=== PATIENT | male | born 1930 | race Caucasian/White ===

== ENCOUNTER 2017-10-12 08:07 | Inpatient (IN) ==
[2017-10-12] MEDS ORDERED: predniSONE 20 MG TABLET PO ONE (08:12)
[2017-10-12] MEDS ORDERED: Ipratropium/Albuterol Neb 3 ML IH ONE (08:12)
--- NOTE | 2017-10-12 08:18 | Emergency Department Note ---
Disposition Clinical Impression: Shortness of breath Congestive heart failure Qualifiers: Congestive heart failure type: unspecified Congestive heart failure chronicity : unspecified Qualified Code(s): I50.9 - Heart failure, unspecified Anemia Qualifiers: Anemia type: unspecified type Qualified Code(s): D64.9 - Anemia, unspecified Disposition: Admitted As Inpatient Condition: Good Referrals: Lety Hernandez WET POUR SUPERVISOR [Primary Care Provider] - Time of Disposition: 09:36 SOB HPI - General Stated Complaint: SOB Time Seen by Provider: 10/12/17 08:09 Source: patient, family (Most information obtained from patient's brother) Mode of arrival: wheelchair Limitations: no limitations Nursing Notes Reviewed: Yes Vital Signs Reviewed: Yes - History of Present Illness Symptoms 10 days. Worse since last night. Patient with wheezing and dyspnea. No chest pain, fevers or known ill contacts. No history of non-oxygen dependent COPD Pt Subjective Complaint: shortness of breath Onset (ago): day(s) Severity: moderate Consistency/Duration: intermittent Improves with: rest Worsens with: other (Course in the morning and with exertion. Better after drinking coffee and after exposure to cold air) Known history of: COPD Associated symptoms: Reports: cough, wheezing, nausea/vomiting - Related Data Home oxygen amount: none Previous Rx's Medication Instructions Recorded Meclizine HCl [Verticalm] 25 mg PO TID #20 tablet 04/15/17 Allergies Allergy/AdvReac Type Severity Reaction Status Date / Time No Known Allergies Allergy Unverified 10/31/15 10:38 All systems ED: reviewed and negative except as stated. Constitutional: Reports: weakness Eyes: Reports: as per HPI ENT ED: Reports: as per HPI Cardiovascular: Reports: edema Respiratory: Reports: cough, dyspnea, wheezes Gastrointestinal: Reports: nausea, vomiting ("sour stomach") Genitourinary: Reports: as per HPI Musculoskeletal: Reports: as per HPI Integumentary: Reports: as per HPI Neurological: Reports: weakness Psychiatric: Reports: as per HPI Endocrine: Reports: as per HPI Hematological/Lymphatic: Reports: as per HPI Allergic/Immunologic: Reports: as per HPI Past Medical History - Past Medical History Source: patient Medical history: Reports: atrial fibrillation Psychiatric history: Reports: no psych history - Social History Smoking Status: Former smoker Smokeless Tobacco Status: No Alcohol use: Reports: occasionally Drug use: Reports: none Physical Exam Hard of hearing. audible wheezing - General Limitations: no limitations General appearance: alert - Head Head exam: atraumatic - Eye Eye exam: Present: other (conjunctival pallor) - ENT ENT exam: normal exam - Neck Neck exam: Present: normal inspection, full ROM - Chest Chest inspection: Present: normal inspection, symmetric chest wall rise - Respiratory Respiratory exam: Present: other (audible wheezing. Mild expiratory wheezing with auscultation. Mild tachypnea.) - Cardiovascular Cardiovascular exam: Present: tachycardia, irregular rhythm - Abdominal Exam Abdominal exam: Present: soft, Non-Tender - Rectal Exam Rectal exam: Present: normal inspection, normal rectal tone. Absent: black stool, bloody stool, fecal impaction, mass, tenderness - Extremities Exam Extremities exam: Present: pedal edema (Trace at sock line) - Neurological Exam Neurological exam: Present: alert, oriented X3, CN II-XII intact - Psychiatric Psychiatric exam: Present: normal affect, normal mood - Skin Skin exam: Present: warm, dry, intact, pallor Course Course Narrative: Patient presents with respiratory symptoms. I favor COPD but will evaluate the patient for CHF, ACS, pneumonia. Therapy administered. Oral steroids ordered. Patient to be observed and reassessed - Reevaluation(s) Reevaluation #1: Patient is Hemoccult negative. Testing suggestive of congestive heart failure. Diuretics administered. I will request admission Vital Signs Temperature 97.5 F L 10/12/17 08:11 Pulse Rate 117 10/12/17 08:11 Respiratory Rate 24 10/12/17 08:11 Blood Pressure 121/85 10/12/17 08:11 O2 Sat by Pulse Oximetry 96 10/12/17 08:11 Temperature 97.5 F L 10/12/17 08:11 Pulse Rate 114 10/12/17 09:20 Respiratory Rate 22 10/12/17 09:20 Blood Pressure 116/98 10/12/17 09:20 O2 Sat by Pulse Oximetry 95 10/12/17 09:20 Oxygen Delivery Oxygen Delivery Nasal Cannula Shortness of Breath/Dyspnea - Medical Records Medical records reviewed: Yes I reviewed the patient's medical records. Home medication lists reviewed. transcribed cardiac echo report dated 10/08 results reviewed by me - Lab Data Lab results reviewed: Yes I reviewed the patient's lab results. Result diagrams: 10/12/17 08:27 10/12/17 08:27 Lab Results 10/12/17 10/12/17 10/12/17 Range/Units 08:27 08:27 08:27 WBC 3.8 L (4.3-11.1) K/mcL RBC 4.28 (4.19-5.50) M/mcL Hgb 8.7 L (12.9-16.9) g/dL Hct 30.0 L (37.5-50.1) % MCV 70.1 L (83.0-100.0) fL MCH 20.3 L (28.0-33.3) pg MCHC 29.0 L (31.6-35.5) g/dL RDW 18.9 H (11.5-14.5) % Plt Count 211 (140-400) K/mcL MPV 11.1 (9.4-12.4) fL Immature Gran % 0.3 (0-4) % Seg Neutrophils % 81.4 % Lymphocytes % 11.5 % Monocytes % 5.0 % Eosinophils % 0.8 % Basophils % 1.0 % Neutrophils # 3.1 (1.6-8.9) K/mcL Lymphocytes # 0.4 L (0.6-4.6) K/mcL Monocytes # 0.2 (0.0-1.3) K/mcL Eosinophils # 0.0 (0.0-0.6) K/mcL Basophils # 0.0 (0.0-0.2) K/mcL Platelet Estimate Normal (Normal) Hypochromasia Present A (Not Present) PT 28.2 H (9.4-12.1) Seconds INR 2.6 Sodium 140 (136-145) mEq/L Potassium 3.8 (3.5-5.1) mEq/L Chloride 106 (98-107) mEq/L Carbon Dioxide 25 (23-29) mEq/L BUN 17 (8-23) mg/dL Creatinine 1.00 (0.70-1.30) mg/dL Est GFR ( Amer) > 60 (> 60) Est GFR (Non-Af Amer) > 60 (> 60) BUN/Creatinine Ratio 17 (6-26) Glucose 134 H (70-105) mg/dL Calculated Osmolality 294 (280-300) Calcium 9.2 (8.6-10.3) mg/dL Total Bilirubin 1.6 H (0.3-1.0) mg/dL AST 12 L (13-39) Units/L ALT 7 (7-52) Units/L Alkaline Phosphatase 108 H (34-104) Units/L Troponin I (< 0.04) ng/mL B-Natriuretic Peptide (Less than 100) pg/mL Serum Total Protein 6.5 (6.4-8.9) g/dL Albumin 3.9 (3.5-5.7) g/dL Globulin 2.6 (2.4-3.5) g/dL Albumin/Globulin Ratio 1.5 (1.1-2.2) Stool Occult Blood (Negative) 10/12/17 10/12/17 10/12/17 Range/Units 08:27 08:27 08:50 WBC (4.3-11.1) K/mcL RBC (4.19-5.50) M/mcL Hgb (12.9-16.9) g/dL Hct (37.5-50.1) % MCV (83.0-100.0) fL MCH (28.0-33.3) pg MCHC (31.6-35.5) g/dL RDW (11.5-14.5) % Plt Count (140-400) K/mcL MPV (9.4-12.4) fL Immature Gran % (0-4) % Seg Neutrophils % % Lymphocytes % % Monocytes % % Eosinophils % % Basophils % % Neutrophils # (1.6-8.9) K/mcL Lymphocytes # (0.6-4.6) K/mcL Monocytes # (0.0-1.3) K/mcL Eosinophils # (0.0-0.6) K/mcL Basophils # (0.0-0.2) K/mcL Platelet Estimate (Normal) Hypochromasia (Not Present) PT (9.4-12.1) Seconds INR Sodium (136-145) mEq/L Potassium (3.5-5.1) mEq/L Chloride (98-107) mEq/L Carbon Dioxide (23-29) mEq/L BUN (8-23) mg/dL Creatinine (0.70-1.30) mg/dL Est GFR ( Amer) (> 60) Est GFR (Non-Af Amer) (> 60) BUN/Creatinine Ratio (6-26) Glucose (70-105) mg/dL Calculated Osmolality (280-300) Calcium (8.6-10.3) mg/dL Total Bilirubin (0.3-1.0) mg/dL AST (13-39) Units/L ALT (7-52) Units/L Alkaline Phosphatase (34-104) Units/L Troponin I 0.05 H* (< 0.04) ng/mL B-Natriuretic Peptide 752 H (Less than 100) pg/mL Serum Total Protein (6.4-8.9) g/dL Albumin (3.5-5.7) g/dL Globulin (2.4-3.5) g/dL Albumin/Globulin Ratio (1.1-2.2) Stool Occult Blood Negative (Negative) - Radiology Data Radiology results reviewed: Yes I reviewed the patient's radiology results. - EKG Data EKG attestation: Yes I reviewed and interpreted this EKG. EKG results narrative: Irregularly irregular rhythm rate 117 QRS 93 QT/QTC 301/371. Study compared to previous dated 04/15/17
[2017-10-12 08:34] LABS: Hemoglobin 8.7 g/dL (12.9-16.9)
[2017-10-12 08:36] LABS: Eosinophils % 0.8 %; Immature Granulocytes % 0.3 % (0-4); Lymphocytes # 0.4 K/mcL (0.6-4.6); Lymphocytes % 11.5 %; Mean Corpuscular Hemoglobin 20.3 pg (28.0-33.3); Mean Corpuscular Volume 70.1 fL (83.0-100.0); Mean Platelet Volume 11.1 fL (9.4-12.4); Monocytes # 0.2 K/mcL (0.0-1.3); Neutrophils # 3.1 K/mcL (1.6-8.9); Platelet Count 211 K/mcL (140-400); Red Blood Count 4.28 M/mcL (4.19-5.50); Red Cell Distribution Width 18.9 % (11.5-14.5); Segmented Neutrophils % 81.4 %
[2017-10-12 08:40] LABS: INR 2.6; Prothrombin Time 28.2 Seconds (9.4-12.1)
[2017-10-12 08:48] LABS: Alanine Aminotransferase 7 Units/L (7-52); Albumin 3.9 g/dL (3.5-5.7); Albumin/Globulin Ratio 1.5 (1.1-2.2); Alkaline Phosphatase 108 Units/L (34-104); Aspartate Amino Transferase 12 Units/L (13-39); BUN/Creatinine Ratio 17 (6-26); Bilirubin,Total 1.6 mg/dL (0.3-1.0); Blood Urea Nitrogen 17 mg/dL (8-23); Calcium 9.2 mg/dL (8.6-10.3); Carbon Dioxide 25 mEq/L (23-29); Chloride 106 mEq/L (98-107); Globulin 2.6 g/dL (2.4-3.5); Glucose 134 mg/dL (70-105); Osmolality,Calculated 294 (280-300); Potassium 3.8 mEq/L (3.5-5.1); Sodium 140 mEq/L (136-145); Total Protein 6.5 g/dL (6.4-8.9); eGFR For African Americans > 60 (> 60); eGFR For Non-African Americans > 60 (> 60)
[2017-10-12 08:56] LABS: Hypochromasia Present (Not Present); Platelet Estimate Normal (Normal)
[2017-10-12] MEDS ORDERED: Furosemide 40 MG/4 ML VIAL IVP ONE (09:06)
[2017-10-12] MEDS ORDERED: Acetaminophen 325 MG TABLET PO PRN (11:04)
[2017-10-12] MEDS ORDERED: Naloxone 0.4 MG/ML INJ IVP PRN (11:04)
[2017-10-12] MEDS ORDERED: Ondansetron 4 MG/2 ML VIAL IVP PRN (11:04)
[2017-10-12] MEDS ORDERED: *HR* Digoxin 0.5 MG/2 ML AMPUL IVP ONE (11:17)
[2017-10-12] MEDS ORDERED: *HR* Digoxin 0.5 MG/2 ML AMPUL ONE (11:18)
--- NOTE | 2017-10-12 11:32 | Internal Med History&Physical ---
Date of Encounter: 10/12/17 Time of Encounter: 11:31 Assessment and Plan (1) Anemia Current visit: Yes Status: Acute 1 presents with a hemoglobin of 8.7 down from previous 2 years ago 14. Suspect this is due to blood loss secondary to Coumadin and aspirin use. Stool cultures negative we will initiate on a Protonix drip 2 we will trend H&H transfuse as less than 8 3 continuous cardiac monitoring 4 hold Coumadin and aspirin for now 5 consult GI-consult has been placed to be followed up by day team 6 we will make patient clear liquids for now and nothing by mouth after midnight Qualifiers: Anemia type: unspecified type Qualified Code(s): D64.9 - Anemia, unspecified (2) Congestive heart failure Current visit: Yes Status: Acute Previous echo 10/2016: Moderately dilated left ventricle. Moderate-severe LV systolic dysfunction, LVEF 30-35%. Right ventricle was not well visualized. Grossly appears normal in size and function. Moderate-severely dilated left atrium. Moderately dilated right atrium. Valvular function was not assessed on this limited study. We will give Lasix 30 mg IV twice a day for today and switch to daily in the a.m. Continuous cardiac monitoring Continue with beta lexi Monitor intake and output daily weights 1500 mL fluid restriction Low-sodium diet Qualifiers: Congestive heart failure type: systolic Congestive heart failure chronicity : acute on chronic Qualified Code(s): I50.23 - Acute on chronic systolic ( congestive) heart failure (3) Atrial fibrillation Current visit: Yes Status: Acute Patient presents with atrial fibrillation with RVR-we will give 0.25 of digoxin continue with cardiazem and metoprolol. Patient is on Coumadin we will hold for now due to anemia. Resume once back to baseline Continuous cardiac monitoring We will check TSH Qualifiers: Atrial fibrillation type: chronic Qualified Code(s): I48.2 - Chronic atrial fibrillation (4) CAD (coronary artery disease) Current visit: Yes Status: Acute 1 continue with beta lexi statin we will hold aspirin and Coumadin for now due to anemia Nitroglycerin as needed Continuous cardiac monitoring Qualifiers: Coronary Disease-Associated Artery/Lesion type: [place] artery [place] vs. transplanted heart: [place] heart Associated angina: without angina Qualified Code(s): I25.10 - Atherosclerotic heart disease of [place] coronary artery without angina pectoris (5) Hypothyroid Current visit: No Status: Chronic Continue with Synthroid Check TSH Qualifiers: Hypothyroidism type: unspecified Qualified Code(s): E03.9 - Hypothyroidism , unspecified (6) DVT prophylaxis Current visit: Yes Status: Acute SCDs due to anemia Internal Medicine - H&P: HPI Chief complaint: SOB Admitted From: Emergency Dept Plans for Post Hospital Care: Home History of present illness: Mr. Dumont is a 87 year old male with past history of atrial fibrillation nonischemic cardiomyopathy CAD CHF. She has been experiencing increasing shortness of breath over the past 7-10 days he has had a poor appetite lower extremity swelling.Denies any Unusual weight loss or weight gain. He has had some nausea and diarrhea no vomiting. Denies any hematemesis or melena hematochezia. He does have a history of CHF and is on Lasix as well as atrial fibrillation and is on Coumadin. He denies any home oxygen use and is not on any bronchodilators. No fevers chills chest pain or abdominal pain. No sick contacts. He presented to the ER with the above complaints according to ER records lab work was obtained and did show hemoglobin of 8.7 which is down from previous is therapeutic on his INR being P was elevated and troponin was elevated rest of lab work was unremarkable. Chest x-ray did show some mild pulmonary edema. EKG shows atrial fibrillation He was given some Lasix and Solu-Medrol in the ER he has been admitted for further work up evaluation. Presently patient is not here to be in any respiratory distress he is hemodynamically stable at this time. I did review this case with Dr. Robbins who does agree with plan. Past Med Surg Social Fam HX - Past Medical History Medical history: atrial fibrillation Psychiatric history: no psych history - Past Surgical History Surgical History: cataract, pacemaker/AICD - Social History Smoking Status: Former smoker Smokeless Tobacco Status: No Alcohol use: occasionally Drug use: none - Family History Father Living Status: Cause of : Leukemia Mother Living Status: Cause of : CVA Internal Medicine - H&P: Meds Aspirin [Lo-Dose Aspirin EC] 81 mg PO DAILY 10/12/17 [History] Bumetanide [Bumex] 1 mg PO DAILY 10/12/17 [History] Cilostazol [Pletal] 100 mg PO BID 10/12/17 [History] Diltiazem [Cardizem] 60 mg PO Q8HR 10/12/17 [History] Levothyroxine [Synthroid] 100 mcg PO DAILY 10/12/17 [History] Metoprolol XL (24 HR) Succ [Toprol XL] 50 mg PO BID 10/12/17 [History] Simvastatin [Zocor] 40 mg PO DAILY 10/12/17 [History] Warfarin [Coumadin] 2 mg PO SUTUTH 10/12/17 [History] Warfarin [Coumadin] 4 mg PO MOWEFRSA 10/12/17 [History] 3 Allergy/AdvReac Type Severity Reaction Status Date / Time No Known Allergies Allergy Unverified 10/31/15 10:38 All Systems PM: A 10-system review of systems was performed and is negative for pertinent findings except as documented above in the HPI. - Constitutional Constitutional: no chills, no fever(s), no night sweats - EENT Eyes: no change in vision, no discharge, no pain, no photophobia Nose, mouth and throat: no dysphagia, no nasal discharge, no neck pain, no sore throat - Cardiovascular Cardiovascular ROS IM: dyspnea, no chest pain, no diaphoresis, no lightheadedness, no palpitations, no syncope - Respiratory Respiratory: cough, dyspnea on exertion - Gastrointestinal Gastrointestinal: diarrhea, nausea, no abdominal pain, no hematemesis, no hematochezia, no melena, no vomiting - Musculoskeletal Musculoskeletal ROS IM: no numbness, no tingling - Integumentary Integumentary IM: no rash, no unusual bruising - Neurological Neurological ROS: no confusion, no convulsions, no focal weakness, no numbness, no tingling, no tremor(s) - Hematologic/Lymphatic Hematologic/Lymphatic: no easy bruising - Constitutional Vitals: Temp Pulse Resp BP Pulse Ox 97.5 F L 114 20 121/98 95 10/12/17 08:11 10/12/17 09:20 10/12/17 10:09 10/12/17 10:09 10/12/17 09:20 General appearance: Present: A&O X 3, answers questions appropriately - Head Head exam: Present: atraumatic, normocephalic - Eye Eye exam: Present: PERRL, conjuntiva pink, sclera anicteric Pupils: Present: PERRL - Neck Neck exam general surgery: Present: supple, trachea midline. Absent: lymphadenopathy - Respiratory Respiratory exam: Present: rales. Absent: accessory muscle use, rhonchi, wheezes - Cardiovascular Cardiovascular exam: Present: irregular rhythm, +S1, +S2. Absent: diastolic murmur, gallop, rubs, systolic murmur - GI/Abdominal GI/Abdominal exam: Present: normal bowel sounds, soft, no peritoneal signs. Absent: distended, tenderness - Extremities Exam Extremities exam: Present: pedal edema, warm, radial pulses palpable and symmetrical. Absent: calf tenderness, cyanotic - Neurological Exam Neurological exam: Present: CN II-XII intact, oriented X3, no focal deficits. Absent: pronater drift, facial droop, speech deficit - Skin Skin exam: Present: dry, intact Internal Med - H&P Results - Labs CBC & Chem 7: 10/12/17 11:36 10/12/17 08:27 - EKG Data EKG comments: 10/12/17 12:38 Atrial fibrillation - Diagnostic Studies Chest x-ray Additional comments: Chest X-Ray 10/12/17 08:12 IMPRESSION: Mild pulmonary edema D/ / Trung Ballard MD / Trung Ballard MD Interpreting Provider: Trung Ballard MD
[2017-10-12 11:42] LABS: Hemoglobin 8.3 g/dL (12.9-16.9)
--- NOTE | 2017-10-12 13:43 | Event Note ---
Date of Encounter: 10/12/17 Time of Encounter: 13:43 patient seen and examined with FURNITURE FINISHER. Agree with assessment and plan
[2017-10-12] MEDS ORDERED: 0.9 % Sodium Chloride 250 ML ONE (14:22)
[2017-10-12] MEDS: Pantoprazole 40 MG VIAL IVP SCH (17:58)
[2017-10-12 20:14] LABS: Hemoglobin 8.6 g/dL (12.9-16.9)
[2017-10-12] MEDS: Furosemide 40 MG/4 ML VIAL IVP SCH (21:43)
[2017-10-12] MEDS: Metoprolol XL (24 HR) Succ 50 MG TAB.ER.24H PO SCH (21:43)
[2017-10-13 00:20] LABS: Hematocrit 28.9 % (37.5-50.1); Hemoglobin 8.5 g/dL (12.9-16.9)
[2017-10-13 05:06] LABS: Hematocrit 29.8 % (37.5-50.1); Hemoglobin 8.8 g/dL (12.9-16.9); Immature Granulocytes % 0.6 % (0-4); Lymphocytes # 0.4 K/mcL (0.6-4.6); Lymphocytes % 12.3 %; Mean Corpuscular HGB Conc 29.5 g/dL (31.6-35.5); Mean Platelet Volume 10.9 fL (9.4-12.4); Monocytes # 0.3 K/mcL (0.0-1.3); Monocytes % 10.2 %; Neutrophils # 2.5 K/mcL (1.6-8.9); Platelet Count 172 K/mcL (140-400); Red Cell Distribution Width 19.8 % (11.5-14.5); Segmented Neutrophils % 76.9 %
[2017-10-13 05:23] LABS: BUN/Creatinine Ratio 14 (6-26); Blood Urea Nitrogen 13 mg/dL (8-23); Calcium 8.7 mg/dL (8.6-10.3); Carbon Dioxide 27 mEq/L (23-29); Chloride 105 mEq/L (98-107); Glucose 120 mg/dL (70-105); Osmolality,Calculated 293 (280-300); Potassium 3.4 mEq/L (3.5-5.1); Sodium 141 mEq/L (136-145); eGFR For African Americans > 60 (> 60); eGFR For Non-African Americans > 60 (> 60)
[2017-10-13 05:25] LABS: Hypochromasia Present (Not Present); Thyroid Stimulating Hormone 0.319 mcIU/mL (0.340-5.600)
[2017-10-13] MEDS: Pantoprazole 40 MG VIAL IVP SCH ×2 (06:40→16:55)
[2017-10-13] MEDS: Metoprolol XL (24 HR) Succ 50 MG TAB.ER.24H PO SCH ×2 (08:04→21:45)
[2017-10-13] MEDS: Furosemide 40 MG/4 ML VIAL IVP SCH ×2 (08:05→16:55)
[2017-10-13 10:59] LABS: INR 2.5
--- NOTE | 2017-10-13 11:16 | Gastroenterology Consult Note ---
<Sandor Centeno - Last Filed: 10/13/17 11:13> Date of Encounter: 10/13/17 Time of Encounter: 10:05 - Assessment and plan (1) Anemia Current Visit: Yes Status: Acute Assessment and plan: Hgb 8.7 on admission and 8.8 this AM. She was 14.1 in January 2016. Continue to monitor CBC and transfuse PRBC as needed. We will plan for EGD once INR less than 2.5. Qualifiers: Anemia type: unspecified type Qualified Code(s): D64.9 - Anemia, unspecified (2) Elevated INR Current Visit: Yes Status: Acute Assessment and plan: INR 2.6 on admission. Check PT/INR. Plan for EGD if INR less than 2.5. (3) Congestive heart failure Current Visit: Yes Status: Acute Qualifiers: Congestive heart failure type: systolic Congestive heart failure chronicity : acute on chronic Qualified Code(s): I50.23 - Acute on chronic systolic ( congestive) heart failure - Time Spent With Patient Total time spent is greater than 50% in coordination of care (as documented) at patient's floor/unit and/or counseling patient: GI History of Present Illness - Data of Consult Patient: new to practice Consult date: 10/13/17 Requesting Physician: Chen Seals - Consult Narrative Reason for consult: Anemia History of present illness: Mr. Dumont is a 87 year old male with PMHx of Afib (on Coumadin), nonischemic cardiomyopathy, CAD, CHF (on Lasix) who presented with increasing SOB of the past 7-10 days and lower extremity swelling. He reports some nausea and diarrhea. He denies fever, chills, chest pain, abdominal pain, vomiting, hematemesis, melena, or hematochezia. We were consulted to evaluate his anemia. On admission, Hgb 8.7 and FOBT was negative and today Hgb 8.8. Previously Hgb was 14.1 on 02/14/2016. Procedures: None NSAIDs: ASA Anticoagulation: Coumadin, Pletal Past Med Surg Social Fam HX - Past Medical History Medical history: atrial fibrillation Psychiatric history: no psych history - Past Surgical History Surgical History: cataract, pacemaker/AICD - Social History Smoking Status: Former smoker Smokeless Tobacco Status: No Alcohol use: occasionally Drug use: none - Family History Father Living Status: Cause of : Leukemia Mother Living Status: Cause of : CVA - Gastrointestinal Gastrointestinal: Present: as per HPI - Constitutional Constitutional: as per HPI - EENT Eyes: as per HPI Ears: Present: as per HPI Nose, mouth and throat: Present: as per HPI - Cardiovascular Cardiovascular ROS: Present: as per HPI - Respiratory Respiratory IM: Present: as per HPI - Genitourinary Genitourinary: Absent: change in color, Urinary frequency - Neurological ROS Neurological GI: Present: as per HPI - Hematologic/Lymphatic Hematologic/Lymphatic pediatric: Present: as per HPI - Musculoskeletal Musculoskeletal ROS GI: Present: as per HPI - Integumentary Integumentary GI: Present: as per HPI - Psychiatric ROS Psychiatric GI: Present: as per HPI - Endocrine Endocrine IM: Present: as per HPI - Constitutional Vitals: Temp Pulse Resp BP Pulse Ox 97.9 F 92 19 126/77 98 10/13/17 08:47 10/13/17 08:47 10/13/17 08:47 10/13/17 08:47 10/13/17 08:47 General appearance: Present: cooperative, A&O X 3, no acute distress, answers questions appropriately - Head Head exam: Present: atraumatic, normocephalic - Eye Eye exam: Present: normal appearance, sclera anicteric - ENT ENT exam: Present: mucous membranes dry - Neck Neck exam general surgery: Present: normal inspection, trachea midline - Respiratory Respiratory exam: Present: rhonchi, wheezes. Absent: CTAB - Cardiovascular Cardiovascular exam: Present: RRR, +S1, +S2 - GI/Abdominal GI/Abdominal exam: Present: soft, no peritoneal signs. Absent: distended, firm , guarding, tenderness - Rectal Rectal exam: Present: deferred - Extremities Exam Extremities exam: Present: warm - Neurological Exam Neurological exam: Present: no focal deficits - Psychiatric Psychiatric exam: Present: normal affect, normal mood - Skin Skin exam: Present: dry, intact, normal color, warm Results - Labs CBC & Chem 7: 10/13/17 04:08 10/13/17 04:08 Labs: Last Result Calcium 8.7 mg/dL (8.6-10.3) 10/13/17 04:08 Troponin I 0.05 ng/mL (< 0.04) H* 01/21/18 19:57 Stool Occult Blood Negative (Negative) 10/12/17 08:50 Entire Visit Hgb 8.8 g/dL (12.9-16.9) L 10/13/17 04:08 Hct 29.8 % (37.5-50.1) L 10/13/17 04:08 PT 27.0 Seconds (9.4-12.1) H 10/13/17 10:44 Total Bilirubin 1.6 mg/dL (0.3-1.0) H 10/12/17 08:27 AST 12 Units/L (13-39) L 10/12/17 08:27 ALT 7 Units/L (7-52) 10/12/17 08:27 - ABG ABG results: PT/INR, D-dimer PT 27.0 Seconds (9.4-12.1) H 10/13/17 10:44 Consult Discharge Plan - Plan Referrals: Lety Hernandez, METABOLIC SPECIALIST [Primary Care Provider] - <Carlos Russo - Last Filed: 10/13/17 14:04> Date of Encounter: 10/13/17 Time of Encounter: 13:30 - Time Spent With Patient Total time spent is greater than 50% in coordination of care (as documented) at patient's floor/unit and/or counseling patient: GI History of Present Illness - Data of Consult Requesting Physician: Chen Seals - Consult Narrative History of present illness: Mr. Dumont is a 87 year old male - Constitutional Vitals: Temp Pulse Resp BP Pulse Ox 97.6 F 100 18 115/65 99 10/13/17 13:00 10/13/17 13:00 10/13/17 13:00 10/13/17 13:00 10/13/17 13:00 Results - Labs CBC & Chem 7: 10/13/17 04:08 10/13/17 04:08 Labs: Last Result Calcium 8.7 mg/dL (8.6-10.3) 10/13/17 04:08 Troponin I 0.05 ng/mL (< 0.04) H* 10/12/17 19:57 Stool Occult Blood Negative (Negative) 10/12/17 08:50 Entire Visit Hgb 8.8 g/dL (12.9-16.9) L 10/13/17 04:08 Hct 29.8 % (37.5-50.1) L 10/13/17 04:08 PT 27.0 Seconds (9.4-12.1) H 10/13/17 10:44 Total Bilirubin 1.6 mg/dL (0.3-1.0) H 10/12/17 08:27 AST 12 Units/L (13-39) L 10/12/17 08:27 ALT 7 Units/L (7-52) 10/12/17 08:27 - ABG ABG results: PT/INR, D-dimer PT 27.0 Seconds (9.4-12.1) H 10/13/17 10:44 - Attending Attestation I examined this patient and my medical decision-making was reviewed with the Resident Physician. I agree with the documented findings, disposition and treatment plan as described except to the extent set forth below. Patient with anemia no overt bleeding, We will do an EGD today and if negative then we will probably need a colonoscopy
--- NOTE | 2017-10-13 11:51 | Internal Med Progress Note ---
Date of Encounter: 10/13/17 Time of Encounter: 11:48 - Assessment and plan (1) Anemia Current Visit: Yes Status: Acute Assessment and plan: Microcytic anemia. GI is following. Plans are for an EGD. H&H is stable. Check iron studies. No signs of bleed. Stools are negative for blood. Continue IV PPI for now. Qualifiers: Anemia type: unspecified type Qualified Code(s): D64.9 - Anemia, unspecified (2) Congestive heart failure Current Visit: Yes Status: Acute Assessment and plan: Likely an acute exacerbation of systolic heart failure. Repeat echo. Echo back on September 2016 showed an EF of 35% with global hypokinesis. Continue with IV diuresis. Continue with 40 mg of IV Lasix twice a day. Kidney function is okay. Replete electrolytes. Monitor input and output. Fluid restriction. Low-salt diet. Continue beta lexi. Qualifiers: Congestive heart failure type: systolic Congestive heart failure chronicity : acute on chronic Qualified Code(s): I50.23 - Acute on chronic systolic ( congestive) heart failure (3) Atrial fibrillation Current Visit: Yes Status: Acute Assessment and plan: Seems to be rate controlled now. Continue beta lexi. Continue Cardizem. Anticoagulation is on hold for suspected GI bleed. We will resume if no bleeds Qualifiers: Atrial fibrillation type: chronic Qualified Code(s): I48.2 - Chronic atrial fibrillation (4) CAD (coronary artery disease) Current Visit: Yes Status: Acute Assessment and plan: Continue statin. Aspirin is on hold. Continue beta lexi. Qualifiers: Coronary Disease-Associated Artery/Lesion type: [place] artery [place] vs. transplanted heart: [place] heart Associated angina: without angina Qualified Code(s): I25.10 - Atherosclerotic heart disease of [place] coronary artery without angina pectoris (5) Hypothyroid Current Visit: No Status: Chronic Assessment and plan: Continue levothyroxine. TSH is on the lower side. Will check rest of thyroid panel. Qualifiers: Hypothyroidism type: unspecified Qualified Code(s): E03.9 - Hypothyroidism , unspecified (6) DVT prophylaxis Current Visit: Yes Status: Acute Assessment and plan: SCDs - Subjective Interval history: She was seen and examined. He was admitted yesterday with lower extremity swelling and anemia. He had mild pulmonary edema on x-rays. He is being treated for CHF exacerbation. Had A. fib with RVR which seems to have resolved. This morning he is feeling better. Denies any chest pain. He has been afebrile. He remains on oxygen 2 L. He is not on oxygen at home. - Constitutional Vitals: Temp Pulse Resp BP Pulse Ox 97.9 F 92 19 126/77 98 10/13/17 08:47 10/13/17 08:47 10/13/17 08:47 10/13/17 08:47 10/13/17 08:47 General appearance: Present: A&O X 3, answers questions appropriately Exam: GEN: NAD CVS: Irregular. S1, S2, No m/r/g RESP: Crackles at the bases ABD: Soft, NT, ND, +BS EXT: Trace edema. 2+ DP. No rashes NEURO: Nonfocal Internal Medicine: Result - Labs CBC & Chem 7: 10/13/17 04:08 10/13/17 04:08 Labs: Short CBC 10/12/17 10/12/17 10/13/17 Range/Units 19:57 23:55 04:08 WBC 3.3 L (4.3-11.1) K/mcL Hgb 8.6 L 8.5 L 8.8 L (12.9-16.9) g/dL Hct 29.0 L 28.9 L 29.8 L (37.5-50.1) % Plt Count 172 (140-400) K/mcL Neutrophils # 2.5 (1.6-8.9) K/mcL BMP 10/13/17 04:08 Sodium 141 Potassium 3.4 L Chloride 105 Carbon Dioxide 27 BUN 13 Creatinine 0.90 Glucose 120 H Calcium 8.7 Cardiac Enzymes 10/12/17 10/12/17 Range/Units 13:52 19:57 Troponin I 0.05 H* 0.05 H* (< 0.04) ng/mL - ABG Interpretation ABG results: PT/INR, D-dimer PT 27.0 Seconds (9.4-12.1) H 10/13/17 10:44 Consult Discharge Plan - Plan Referrals: Lety Hernandez, [employer] CONFINEMENT SYSTEM MANAGER [Primary Care Provider] -
--- NOTE | 2017-10-13 13:05 | Anesthesia Evaluation PreOp ---
Date of Encounter: 10/13/17 Time of Encounter: 13:11 - Past History Planned Operation: EGD re: Anemia Cardiac History: CHF (LVEF 30-35%. Maintained on Lasix, Bumex), HTN (maintained on Metoprolol), Hyperlipidemia (maintaineed on Simvastatin), Pacemaker/ICD ( Pacer only, Pacer dependent. Maintained on Pletal), Other (ECHO 10/10/2016 - Impressions: Atrial fibrillation with frequent PVCs. Moderate-severe left ventricular systolic dysfunction, LVEF 35%. There is global hypokinesis with regional variations. Mild concentric left ventricular hypertrophy. Indeterminate diastolic function due to atrial fibrillation. Normal right ventricular size and function. A device lead was visualized in the right atrium and right ventricle. Moderate-severely dilated left atrium. Mildly dilated right atrium. Mild-moderate aortic stenosis. Mild-moderate mitral regurgitation. No evidence of pulmonary hypertension.) Other Medical History: Thyroid (maintained on Synthroid) Alcohol Use: occasionally Drug use: none Medications and Allergies Aspirin [Lo-Dose Aspirin EC] 81 mg PO DAILY 10/12/17 [History] Bumetanide [Bumex] 1 mg PO DAILY 10/12/17 [History] Cilostazol [Pletal] 100 mg PO BID 10/12/17 [History] Diltiazem [Cardizem] 60 mg PO Q8HR 10/12/17 [History] Levothyroxine [Synthroid] 100 mcg PO DAILY 10/12/17 [History] Metoprolol XL (24 HR) Succ [Toprol XL] 50 mg PO BID 10/12/17 [History] Simvastatin [Zocor] 40 mg PO DAILY 10/12/17 [History] Warfarin [Coumadin] 2 mg PO SUTUTH 10/12/17 [History] Warfarin [Coumadin] 4 mg PO MOWEFRSA 10/12/17 [History] 3 Allergy/AdvReac Type Severity Reaction Status Date / Time No Known Allergies Allergy Unverified 10/31/15 10:38 - Meds/Allergy Pre-op Review Medications Reviewed: Yes Allergies Reviewed: Yes Beta Blockers on Current Med List: Yes Anesthesia Results - Labs 10/13/17 04:08 10/13/17 04:08 - Imaging EKG: image reviewed (EKG dated 2017-04-15: ATRIAL FIBRILLATION WITH ABERRANT CONDUCTION OR VENTRICULAR PREMATURE COMPLEXES AND DEMAND VENTRICULAR PACING BORDERLINE LEFT AXIS DEVIATION [QRS AXIS < -20] INCOMPLETE RIGHT BUNDLE BRANCH BLOCK [90+ ms QRS DURATION, TERMINAL R IN V1/V2, 40+ ms S IN I/aVL/V4/V5/V6] NONSPECIFIC T-WAVE ABNORMALITY ABNORMAL RHYTHM ECG Electronically Signed On 04-17 6:18:37 EDT by Aman Ulloa,) Chest x-ray: report reviewed Anesthesia Exam Vital Signs Temp Pulse Resp BP Pulse Ox 10/13/17 13:00 97.6 F 100 18 115/65 99 10/13/17 12:35 97.6 F 93 18 113/78 98 10/13/17 08:47 97.9 F 92 19 126/77 98 10/12/17 23:50 98.6 F 113 18 122/84 96 10/12/17 23:25 98.7 F 116 18 143/91 10/12/17 19:32 98.0 F 94 18 115/77 97 10/12/17 18:03 98.3 F 112 18 128/75 10/12/17 15:48 98.2 F 104 20 120/80 90 10/12/17 15:11 98 F 107 20 136/88 10/12/17 14:56 98.4 F 109 18 122/64 96 10/12/17 13:43 98.1 F 109 21 135/62 94 Intake and Output 10/12/17 10/13/17 10/13/17 23:59 07:59 15:59 Intake Total 761 / 761 100 / 100 0 / 0 Output Total 1500 / 1500 1300 / 1300 Balance 761 / 761 -1400 / -1400 -1300 / -1300 Intake: Oral 500 / 500 100 / 100 0 / 0 Blood Product 261 / 261 Rbcs Leuko Poor As-1 Unit 261 / 261 [id number] Output: Urine 1500 / 1500 1300 / 1300 Other: Meal Dinner NPO Percent of Meal Consumed 100% 0% Weight 78.075 kg Patient Weight 10/13/17 23:59 Weight 78.075 kg Height: 5'9" Weight: 172# BMI =25 NPO (# of Hours): MNOc - HEENT Pupil (Motor): Pupils equal, EOMI Mallampati: II Teeth: Edentulous Oral Opening: Greater than 3 - TECHNICAL APPLICATIONS SPECIALIST LOC: Oriented TECHNICAL APPLICATIONS SPECIALIST Motor: Normal RUE, Normal LUE, Normal RLE, Normal LLE, Normal Face TECHNICAL APPLICATIONS SPECIALIST Sensory: Normal: RUE, LUE, RLE, LLE, Face - Cardiac Rhythm: Irregular JVD: No - Pulmonary Breath Sounds: bilateral Clear Respiratory Effort: Symmetrical Anesthesia Assess/Plan ASA Score: 4 Modified [place] Scale for Level of Consciousness: Cooperative, oriented, and tranquil Anesthetic Plan: MAC Monitoring Plan: Standard Monitors Recovery Plan: PACU Anes Supervising Prov Stmt: Pt seen/evaluated, R&B Discussed, questions answered and consent obtained. Andreea eJsus MD
[2017-10-13 13:06] LABS: Triiodothyronine (T3) Free 2.25 pg/mL (2.50-3.90)
[2017-10-13] MEDS: 0.9 % Sodium Chloride 1,000 ML IVC SCH (13:06)
[2017-10-13 13:11] LABS: Triiodothyronine (T3) Total 0.5 ng/mL (0.87-1.78)
[2017-10-13] MEDS ORDERED: *HR* Propofol 200 MG/20 ML VIAL IVP ONE (14:01)
[2017-10-13] MEDS ORDERED: Tetracaine/Benzocaine/Butamben 200MG/SPRAY (100SPY/BOT) MM ONE (14:09)
[2017-10-13] MEDS ORDERED: Ipratropium/Albuterol Neb 3 ML IH ONE (14:32)
[2017-10-13] MEDS ORDERED: Ipratropium/Albuterol Neb 3 ML ONE (14:34)
[2017-10-14] MEDS ORDERED: 0.9 % Sodium Chloride 500 ML IVC ONE (00:59)
[2017-10-14] MEDS: Pantoprazole 40 MG VIAL IVP SCH (05:31)
[2017-10-14 06:07] LABS: Basophils % 0.9 %; Eosinophils # 0.1 K/mcL (0.0-0.6); Eosinophils % 1.9 %; Hematocrit 30.1 % (37.5-50.1); Hemoglobin 8.9 g/dL (12.9-16.9); Immature Granulocytes % 0.2 % (0-4); Lymphocytes # 0.6 K/mcL (0.6-4.6); Lymphocytes % 14.8 %; Mean Corpuscular HGB Conc 29.6 g/dL (31.6-35.5); Mean Corpuscular Hemoglobin 21.3 pg (28.0-33.3); Mean Platelet Volume 11.6 fL (9.4-12.4); Monocytes # 0.4 K/mcL (0.0-1.3); Monocytes % 9.4 %; Neutrophils # 3.1 K/mcL (1.6-8.9); Platelet Count 188 K/mcL (140-400); Red Blood Count 4.18 M/mcL (4.19-5.50); Red Cell Distribution Width 19.9 % (11.5-14.5); Segmented Neutrophils % 72.8 %
[2017-10-14 06:12] LABS: BUN/Creatinine Ratio 17 (6-26); Blood Urea Nitrogen 19 mg/dL (8-23); Calcium 8.3 mg/dL (8.6-10.3); Carbon Dioxide 29 mEq/L (23-29); Chloride 108 mEq/L (98-107); Glucose 101 mg/dL (70-105); Osmolality,Calculated 296 (280-300); Potassium 3.5 mEq/L (3.5-5.1); Sodium 142 mEq/L (136-145); eGFR For African Americans > 60 (> 60); eGFR For Non-African Americans > 60 (> 60)
[2017-10-14 06:29] LABS: Anisocytosis 2+ (Not Present); Microcytosis Present (Not Present)
[2017-10-14 06:30] LABS: Large Platelets Present (Not Present); Platelet Estimate Normal (Normal)
[2017-10-14] MEDS: Furosemide 40 MG/4 ML VIAL IVP SCH ×2 (08:05→17:16)
[2017-10-14] MEDS: Metoprolol XL (24 HR) Succ 50 MG TAB.ER.24H PO SCH ×3 (08:06→20:17)
--- NOTE | 2017-10-14 12:29 | Internal Med Progress Note ---
Date of Encounter: 10/14/17 Time of Encounter: 12:26 - Assessment and plan (1) Anemia Current Visit: Yes Status: Acute Assessment and plan: Microcytic anemia. Iron studies shows iron deficiency. I will give IV iron 3 days. He will need oral iron therapy at discharge. GI is following. Normal EGD. Change IV PPI to oral. Hemoglobin has been stable. I will restart the patient's anticoagulation. Stools are negative for occult bleeding. Plans are for an EGD. H&H is stable. Check iron studies. No signs of bleed. Stools are negative for blood. Qualifiers: Anemia type: unspecified type Qualified Code(s): D64.9 - Anemia, unspecified (2) Congestive heart failure Current Visit: Yes Status: Acute Assessment and plan: Likely an acute exacerbation of systolic heart failure. Repeat echo shows EF of 20-25%. Will consult cardiology. Echo back on September 2016 showed an EF of 35% with global hypokinesis. Continue with IV diuresis. Continue with 40 mg of IV Lasix twice a day. Kidney function is okay. Replete electrolytes. Monitor input and output. Fluid restriction. Low-salt diet. Continue beta lexi. Qualifiers: Congestive heart failure type: systolic Congestive heart failure chronicity : acute on chronic Qualified Code(s): I50.23 - Acute on chronic systolic ( congestive) heart failure (3) Atrial fibrillation Current Visit: Yes Status: Acute Assessment and plan: Went into RVR. We will give the patient's beta lexi as I believe his blood pressure is better now. Consult cardiology. Hold Cardizem for now given marginal blood pressure. We will see if the beta lexi helps. Resume Coumadin as there is no signs of a GI bleed Qualifiers: Atrial fibrillation type: chronic Qualified Code(s): I48.2 - Chronic atrial fibrillation (4) CAD (coronary artery disease) Current Visit: Yes Status: Acute Assessment and plan: Continue statin. Resume aspirin. Continue beta lexi. Qualifiers: Coronary Disease-Associated Artery/Lesion type: [place] artery [place] vs. transplanted heart: [place] heart Associated angina: without angina Qualified Code(s): I25.10 - Atherosclerotic heart disease of [place] coronary artery without angina pectoris (5) Hypothyroid Current Visit: No Status: Chronic Assessment and plan: Continue levothyroxine. TSH is on the lower side. Will check rest of thyroid panel. Qualifiers: Hypothyroidism type: unspecified Qualified Code(s): E03.9 - Hypothyroidism , unspecified (6) DVT prophylaxis Current Visit: Yes Status: Acute Assessment and plan: SCDs. We will resume Coumadin - Subjective Interval history: She was seen and examined. His blood pressure has been borderline. Nursing staff told me that his blood pressure was in the 70s at some point overnight however this morning the 90s. I did ask nursing staff this morning to hold his beta lexi and Cardizem. Later in the morning he went into RVR. He has have a history of A. fib. At that point we give him his metoprolol as his blood pressure was better with systolic in the low 100s. He has been afebrile. He had an EGD yesterday. He was admitted with lower extremity swelling and anemia. He had mild pulmonary edema on x-rays. He is being treated for CHF exacerbation. He remains on oxygen 2 L. He is not on oxygen at home. - Constitutional Vitals: Temp Pulse Resp BP Pulse Ox 98.0 F 50 17 108/62 99 10/14/17 11:25 10/14/17 11:25 10/14/17 11:25 10/14/17 11:25 10/14/17 11:25 General appearance: Present: A&O X 3, answers questions appropriately Exam: GEN: NAD CVS: Irregular. S1, S2, No m/r/g RESP: Crackles at the bases ABD: Soft, NT, ND, +BS EXT: Trace edema. 2+ DP. No rashes NEURO: Nonfocal Internal Medicine: Result - Labs CBC & Chem 7: 10/14/17 05:11 10/14/17 05:11 Labs: Short CBC 10/14/17 Range/Units 05:11 WBC 4.3 (4.3-11.1) K/mcL Hgb 8.9 L (12.9-16.9) g/dL Hct 30.1 L (37.5-50.1) % Plt Count 188 (140-400) K/mcL Neutrophils # 3.1 (1.6-8.9) K/mcL BMP 10/14/17 05:11 Sodium 142 Potassium 3.5 Chloride 108 H Carbon Dioxide 29 BUN 19 Creatinine 1.10 Glucose 101 Calcium 8.3 L - ABG Interpretation ABG results: PT/INR, D-dimer PT 27.0 Seconds (9.4-12.1) H 10/13/17 10:44 - Impressions Impressions Echocardiogram 10/13/17 11:54 Impressions: LVEF 20-25%. Moderately dilated left ventricle. Indeterminate diastolic function. Mildly dilated with low normal function. Bi-atrial enlargement. Mild-moderate aortic stenosis. Moderate mitral regurgitation. Mild-moderate tricuspid regurgitation. Mild pulmonary hypertension. A device lead is visualized in the right heart. Pleural effusion is not appreciated on this study. Left Ventricular Wall Motion: Rest Echo Findings The apex, apical inferior, mid inferior, basal inferior, apical anterior, mid anterior, basal anterior, apical septal, mid inferior septal, basal inferior septal, apical lateral, mid anterior lateral, basal anterior lateral, mid anterior septal, mid inferior lateral, basal anterior septal and basal inferior lateral [place] were hypokinetic. Findings: Study Quality * Technically adequate exam. ECG Findings * Atrial fibrillation with ectopy. Left Ventricle * LVEF 20-25%. * Moderately dilated left ventricle. * Indeterminate diastolic function. * There is no LV thrombus. * Definity echo contrast was not used. Right Ventricle * Mildly dilated with low normal function. Left Atrium * Severely dilated left atrium. Right Atrium * Severely dilated right atrium. Aortic Valve * Leaflet morphology is not well visualized * Moderately thickened and calcified aortic valve leaflets. * Trace aortic regurgitation. * Mild-moderate aortic stenosis. Mitral Valve * Normal mitral valve structure. * No mitral stenosis. * Moderate mitral regurgitation. Tricuspid Valve * Normal tricuspid valve structure. * Mild-moderate tricuspid regurgitation. * Estimated RA pressure is 3 mmHg. * Estimated RVSP is 39 mmHg. * Mild pulmonary hypertension. Pulmonic Valve * Pulmonic valve is not well visualized. * No pulmonic stenosis. * Trace pulmonic regurgitation. Pulmonary Artery * Pulmonary artery not well visualized. Aorta * Normally sized aortic root. Pericardium * There is no pericardial effusion present. Interatrial Septum * No evidence of PFO by color Doppler. IVC * Normal IVC dimensions and inspiratory collapse. Consult Discharge Plan - Plan Referrals: Lety Hernandez, FIREMAN HELPER [Primary Care Provider] -
[2017-10-14] MEDS ORDERED: Amiodarone Premix 150 MG/100 ML BAG IVPB ONE (15:35)
--- NOTE | 2017-10-14 15:41 | Cardiology Consult Note ---
<Jigna Batemand - Last Filed: 10/14/17 16:47> Date of Encounter: 10/14/17 Time of Encounter: 15:39 Assessment and Plan (1) Atrial fibrillation with rapid ventricular response Current Visit: Yes Status: Acute Heart rate ranging from the 110s to 130s on telemetry. Patient having shortness of breath associated with heart rate. Patient's blood pressures are labile at 108/62. Mildly elevated troponin at 0.05. I suspect this is due to demand ischemia and his heart rate has been very rapid. Echocardiogram reveals left ventricular ejection fraction that has worsened. It is currently now 20-25 %. Chest x-ray reveals mild pulmonary edema. Patient currently has pacer placed. There was previous discussion on whether to implant defibrillator and patient and son decided against it back in October. EKG reveals A. fib with RVR. We will consider possibility of biventricular pacemaker. Will transfer to 2 N to start amiodarone drip. We will give 150 mg amiodarone IV over 20 minutes and will start amiodarone drip at 0.5 mg/m over 18 hours. Continue diuresis with 40 mg Lasix twice a day. Stop Cardizem (2) Dilated cardiomyopathy Current Visit: Yes Status: Acute Left ventricular ejection fraction is worsened to 20-25%. Patient currently does not have a defibrillator placed. Conversation with patient and family in the office was to not place defibrillator at that time. We will maximize medical therapy as stated above. (3) Anemia Current Visit: Yes Status: Acute Management by gastroenterology and hospitalist. Coumadin is currently being held as hemoglobin is 8.9 which is significantly lower from where it was in 2016 as it was 14 then. Hemoglobin has been stable in the hospital. Plan per hospitalist is to restart anticoagulation therapy. Qualifiers: Anemia type: unspecified type Qualified Code(s): D64.9 - Anemia, unspecified Discussion w patient/family: The assessment and plan as outlined above was discussed with the patient and/or family members who expressed understanding and agreement. All questions were answered. Thank you for involving us in the care of your patient. Please call with any questions. History of Present Illness Consult date: 10/14/17 Requesting physician: Chen Seals Consult reason: a-fib w/ RVR Chief complaint: SOB History of present illness: Mr. Dumont is a 87 year old male past medical history of atrial fibrillation , coronary artery disease, hypothyroidism, peripheral arterial disease, dilated cardiomyopathy. who we are consulted on because of a 2 fibrillation with RVR, pacemaker placement. Patient states that he has been having shortness of breath last couple weeks. He denies any chest pain, pressure, tightness. Currently taking diltiazem 60 mg every 8 hours, Toprol-XL 50 mg twice daily. Past Med Surg Social Fam HX - Past Medical History Medical history: atrial fibrillation Psychiatric history: no psych history - Past Surgical History Surgical History: cataract, pacemaker/AICD - Social History Smoking Status: Former smoker Smokeless Tobacco Status: No Alcohol use: occasionally Drug use: none - Family History Father Living Status: Cause of : Leukemia Mother Living Status: Cause of : CVA Medications and Allergies Aspirin [Lo-Dose Aspirin EC] 81 mg PO DAILY 10/12/17 [History] Bumetanide [Bumex] 1 mg PO DAILY 10/12/17 [History] Cilostazol [Pletal] 100 mg PO BID 10/12/17 [History] Diltiazem [Cardizem] 60 mg PO Q8HR 10/12/17 [History] Levothyroxine [Synthroid] 100 mcg PO DAILY 10/12/17 [History] Metoprolol XL (24 HR) Succ [Toprol XL] 50 mg PO BID 10/12/17 [History] Simvastatin [Zocor] 40 mg PO DAILY 10/12/17 [History] Warfarin [Coumadin] 2 mg PO SUTUTH 10/12/17 [History] Warfarin [Coumadin] 4 mg PO MOWEFRSA 10/12/17 [History] 3 Allergy/AdvReac Type Severity Reaction Status Date / Time No Known Allergies Allergy Unverified 10/31/15 10:38 All Systems Review: A 10-system review of systems was performed and is negative for pertinent findings except as documented above in the HPI. - Constitutional Constitutional: no fatigue - Respiratory Respiratory: cough, dyspnea, no hemoptysis, no wheezing - Gastrointestinal Gastrointestinal: diarrhea, no abdominal pain, no hematemesis, no hematochezia, no melena - Genitourinary Genitourinary: no hematuria Physical Examination Vital Signs, Last 4 Hours Temp Pulse Resp BP Pulse Ox 10/14/17 14:57 97.8 F 115 20 101/59 95 General: Conversant, No Apparent Distress HEENT: Atraumatic, Normocephaly Neck: No JVD Cardiac: Other (Telemetry: Atrial fibrillation with rapid ventricular response with a rate in the 110s to 130s) Lungs: Normal Breath Sounds, No Wheeze, Rales, Rhonchi Neuro: Alert and responsive, No focal deficits noted Abdomen: Soft, Non-Tender Skin: No rashes noted on visualized skin Musculoskeletal: No Chest Wall Tenderness Extremities: No Edema Results 10/14/17 05:11 10/14/17 05:11 Lab Results 10/14/17 10/14/17 05:11 05:11 WBC 4.3 Hgb 8.9 L Hct 30.1 L Plt Count 188 Sodium 142 Potassium 3.5 Chloride 108 H Carbon Dioxide 29 BUN 19 Creatinine 1.10 Glucose 101 Calcium 8.3 L Consult Discharge Plan - Plan Referrals: Lety Hernandez, [employer] HEAR[employer] MELTER [Primary Care Provider] - 10/22/17 3:00 pm () <Amari Sethi - Last Filed: 10/15/17 19:50> Date of Encounter: 10/15/17 - Attending Attestation I examined this patient and my medical decision-making was reviewed with the Resident Physician. I agree with the documented findings, disposition and treatment plan as described except to the extent set forth below. CC: Shortness of breath Pt presents with two to three week history of increased shortness of breath, worse with activity, not associated with chest pain, lasts five to ten minutes when tries to be active, takes thirty to forty minutes to catch is breath with rest. He reports he is unaware of rapid heart rates. PE: reviewed above, with the addition of very hard of hearing, mild conversational dyspnea IMP; 1. Chronic A fib, with poorly controlled ventricular response, improved control on IV aminodarone, will continue for now. 2. Acute on chronic systolic heart failure with mild decompensation due to rapid ventricular response to a fib, responding to IV diuresis, secondary to ischemic cardiomyopathy, with known EF 25%, will repeat echo to reevaluate LV function 3. Sick Sinus Syndrome, with PPMK 4. Chronic anemia, has been on warfarin for primary stroke risk reduction, now on hold, Assessment and Plan Discussion w patient/family: The assessment and plan as outlined above was discussed with the patient and/or family members who expressed understanding and agreement. All questions were answered. Thank you for involving us in the care of your patient. Please call with any questions. History of Present Illness History of present illness: Mr. Dumont is a 87 year old male All Systems Review: A 10-system review of systems was performed and is negative for pertinent findings except as documented above in the HPI. Physical Examination Vital Signs, Last 4 Hours Temp Pulse Resp BP Pulse Ox 10/15/17 18:58 97.9 F 91 18 111/99 94 10/15/17 16:07 98.2 F 110 18 116/76 95 Results 10/15/17 05:48 10/15/17 05:48 Lab Results 10/15/17 10/15/17 10/15/17 05:48 05:48 12:33 WBC 4.3 Hgb 9.2 L Hct 31.8 L Plt Count 178 INR 1.6 Sodium 141 Potassium 3.8 Chloride 106 Carbon Dioxide 28 BUN 20 Creatinine 1.13 Glucose 105 Calcium 8.5 L
[2017-10-14] MEDS: 0.9 % Sodium Chloride 1,000 ML IVC SCH (16:32)
[2017-10-14] MEDS: Amiodarone Premix 360 MG/200 ML BAG IVC SCH (16:47)
[2017-10-15] MEDS: Pantoprazole 40 MG VIAL IVP SCH (05:30)
[2017-10-15 06:22] LABS: Hemoglobin 9.2 g/dL (12.9-16.9); Immature Granulocytes % 0.2 % (0-4)
[2017-10-15 06:23] LABS: Eosinophils % 1.9 %; Hematocrit 31.8 % (37.5-50.1); Lymphocytes % 24.8 %; Mean Corpuscular HGB Conc 28.9 g/dL (31.6-35.5); Mean Corpuscular Hemoglobin 20.6 pg (28.0-33.3); Mean Corpuscular Volume 71.3 fL (83.0-100.0); Monocytes % 9.7 %; Platelet Count 178 K/mcL (140-400); Red Blood Count 4.46 M/mcL (4.19-5.50); Red Cell Distribution Width 20.1 % (11.5-14.5); Segmented Neutrophils % 62.7 %
[2017-10-15 06:24] LABS: Basophils % 0.7 %; Eosinophils # 0.1 K/mcL (0.0-0.6); Lymphocytes # 1.1 K/mcL (0.6-4.6); Monocytes # 0.4 K/mcL (0.0-1.3); Neutrophils # 2.7 K/mcL (1.6-8.9)
[2017-10-15 06:51] LABS: BUN/Creatinine Ratio 18 (6-26); Blood Urea Nitrogen 20 mg/dL (8-23); Calcium 8.5 mg/dL (8.6-10.3); Carbon Dioxide 28 mEq/L (23-29); Chloride 106 mEq/L (98-107); Glucose 105 mg/dL (70-105); Osmolality,Calculated 295 (280-300); Potassium 3.8 mEq/L (3.5-5.1); Sodium 141 mEq/L (136-145); eGFR For African Americans > 60 (> 60); eGFR For Non-African Americans > 60 (> 60)
[2017-10-15 07:44] LABS: Hypochromasia Present (Not Present)
[2017-10-15 07:45] LABS: Platelet Estimate Normal (Normal)
[2017-10-15 07:46] LABS: Burr Cells 1+ (Not Present); Microcytosis Present (Not Present)
--- NOTE | 2017-10-15 07:54 | Electrocardiograph Report ---
[address] [address] Test Date: 2017-10-12 Pat Name: Jeff Dumont Department: 103 Room: 2N05 Gender: M Circulation Director: JM : 1930 Requested By: Chen Seals Order Number: [id number] Reading MD: Lobito Baca MD Measurements Intervals [place] Rate: 127 P: [place]: 0 QRS: -17 QRSD: 92 T: -6 QT: 314 QTc: 389 Interpretive Statements ATRIAL FIBRILLATION WITH RAPID VENTRICULAR RESPONSE WITH ABERRANT CONDUCTION OR VENTRICULAR PREMATURE COMPLEXES Poor R wave progression Electronically Signed On 10-15-2017 6:24:38 EST by Lobito Baca MD
--- NOTE | 2017-10-15 07:54 | Electrocardiograph Report ---
[address] [address] Test Date: 2017-10-12 Pat Name: Jeff Dumont Department: 104 Room: 05 Gender: M Warp Tester: [facility] : 1930 Requested By: Sandor Jordan Order Number: [id number] Reading MD: Lobito Baca MD Measurements Intervals [place] Rate: 117 P: [place]: 0 QRS: -12 QRSD: 93 T: 33 QT: 301 QTc: 371 Interpretive Statements ATRIAL FIBRILLATION WITH RVR AND ABERRANTLY CONDUCTED COMPLEXES OR PVCS POOR R WAVE PROGRESSION Electronically Signed On 10-15-2017 6:18:36 EST by Lobito Baca MD
--- NOTE | 2017-10-15 07:55 | Electrocardiograph Report ---
[address] [address] Test Date: 2017-10-12 Pat Name: Jeff Dumont Department: 112 Room: 2N05 Gender: M Chemical Packager: : 1930 Requested By: Maikol Armas Order Number: [id number] Reading MD: Lobito Baca MD Measurements Intervals [place] Rate: 109 P: [place]: 0 QRS: -8 QRSD: 101 T: 35 QT: 336 QTc: 400 Interpretive Statements ATRIAL FIBRILLATION WITH RAPID VENTRICULAR RESPONSE WITH ABERRANT CONDUCTION OR VENTRICULAR PREMATURE COMPLEXES Electronically Signed On 10-15-2017 6:54:03 EST by Lobito Baca MD
[2017-10-15] MEDS: Aspirin Enteric Coated 81 MG Tablet PO SCH (07:58)
[2017-10-15] MEDS: Metoprolol XL (24 HR) Succ 50 MG TAB.ER.24H PO SCH ×2 (07:58→20:38)
[2017-10-15] MEDS: Furosemide 40 MG/4 ML VIAL IVP SCH ×2 (07:58→16:33)
[2017-10-15] MEDS: 0.9 % Sodium Chloride 1,000 ML IVC SCH (07:59)
[2017-10-15] MEDS: Amiodarone Premix 360 MG/200 ML BAG IVC SCH ×2 (08:50→20:38)
--- NOTE | 2017-10-15 09:40 | Internal Med Progress Note ---
Date of Encounter: 10/15/17 Time of Encounter: 09:40 - Subjective Interval history: Interval changes: Conversational dyspnea this am. Not rate controlled. Denies chest pain. Physical Exam: See below. Assessment and Plan Atrial fibrillation with rapid ventricular response Current Visit: Yes Status: Acute Note rate or rhythm controlled. Rates 110 to 120 range. Patient having shortness of breath associated with heart rate. Mild troponin elevation 0.05 due to demand ischemia and his heart rate has been very rapid. Echocardiogram reveals left ventricular ejection fraction that has worsened. It is currently now 20-25%. Chest x-ray reveals mild pulmonary edema. Patient currently has pacer placed. There was previous discussion on whether to implant defibrillator and patient and son decided against it back in October. EKG reveals A. fib with RVR. Patient does not meet criteria for bi-venricular pacemaker as QRS complex is not wide enough. Cardiology consultes and recommend; Dig and Amiodarone started HR goal is <110 Continue diuresis with 40 mg Lasix twice a day. Continue aspirin 81mg PO qd H e was on coumadin. Recheck PT/INR and if INR less than 2.0, start Pradaxa 150mg BID. Dilated cardiomyopathy Left ventricular ejection fraction is worsened to 20-25%. Patient currently does not have a defibrillator placed. Anemia On admission, Hgb 8.7 and was 14.1 on 02/13/17. Hbg now sable at 9.2. He was scoped by gastroenterology on 10/13/17 and no source of bleeding was found. . The patient denies hematemesis, melena, or hematochezia and the FOBT was negative. Continue to follow Hgb. - Constitutional Vitals: Temp Pulse Resp BP Pulse Ox 98.1 F 121 20 111/74 95 10/15/17 07:21 10/15/17 08:00 10/15/17 07:21 10/15/17 08:00 10/15/17 07:21 General appearance: Present: mild distress, A&O X 3, answers questions appropriately - Head Head exam: Present: atraumatic, normocephalic - Eye Eye exam: Present: PERRL, conjuntiva pink, sclera anicteric Pupils: Present: PERRL - Neck Neck exam general surgery: Present: supple, trachea midline. Absent: lymphadenopathy, thyromegaly - Respiratory Respiratory exam: Present: CTAB. Absent: accessory muscle use, rales, rhonchi, wheezes - Cardiovascular Cardiovascular exam: Present: irregular rhythm, +S1, +S2, tachycardia. Absent: bradycardia, diastolic murmur, gallop, RRR, rubs, systolic murmur - GI/Abdominal GI/Abdominal exam: Present: normal bowel sounds, soft, no peritoneal signs. Absent: distended, tenderness - Extremities Exam Extremities exam: Present: warm, radial pulses palpable and symmetrical. Absent : calf tenderness, cyanotic, pedal edema - Expanded Lower Extremities Exam Ankle exam: Present: swelling - Neurological Exam Neurological exam: Present: CN II-XII intact, oriented X3, no focal deficits. Absent: pronater drift, facial droop, speech deficit - Skin Skin exam: Present: dry, intact Internal Medicine: Result - Labs CBC & Chem 7: 10/15/17 05:48 10/15/17 05:48 Labs: Short CBC 10/15/17 Range/Units 05:48 WBC 4.3 (4.3-11.1) K/mcL Hgb 9.2 L (12.9-16.9) g/dL Hct 31.8 L (37.5-50.1) % Plt Count 178 (140-400) K/mcL Neutrophils # 2.7 (1.6-8.9) K/mcL BMP 10/15/17 05:48 Sodium 141 Potassium 3.8 Chloride 106 Carbon Dioxide 28 BUN 20 Creatinine 1.13 Glucose 105 Calcium 8.5 L - ABG Interpretation ABG results: PT/INR, D-dimer PT 27.0 Seconds (9.4-12.1) H 10/13/17 10:44 - Impressions Impressions Echocardiogram 10/13/17 11:54 Impressions: LVEF 20-25%. Moderately dilated left ventricle. Indeterminate diastolic function. Mildly dilated with low normal function. Bi-atrial enlargement. Mild-moderate aortic stenosis. Moderate mitral regurgitation. Mild-moderate tricuspid regurgitation. Mild pulmonary hypertension. A device lead is visualized in the right heart. Pleural effusion is not appreciated on this study. Left Ventricular Wall Motion: Rest Echo Findings The apex, apical inferior, mid inferior, basal inferior, apical anterior, mid anterior, basal anterior, apical septal, mid inferior septal, basal inferior septal, apical lateral, mid anterior lateral, basal anterior lateral, mid anterior septal, mid inferior lateral, basal anterior septal and basal inferior lateral [place] were hypokinetic. Findings: Study Quality * Technically adequate exam. ECG Findings * Atrial fibrillation with ectopy. Left Ventricle * LVEF 20-25%. * Moderately dilated left ventricle. * Indeterminate diastolic function. * There is no LV thrombus. * Definity echo contrast was not used. Right Ventricle * Mildly dilated with low normal function. Left Atrium * Severely dilated left atrium. Right Atrium * Severely dilated right atrium. Aortic Valve * Leaflet morphology is not well visualized * Moderately thickened and calcified aortic valve leaflets. * Trace aortic regurgitation. * Mild-moderate aortic stenosis. Mitral Valve * Normal mitral valve structure. * No mitral stenosis. * Moderate mitral regurgitation. Tricuspid Valve * Normal tricuspid valve structure. * Mild-moderate tricuspid regurgitation. * Estimated RA pressure is 3 mmHg. * Estimated RVSP is 39 mmHg. * Mild pulmonary hypertension. Pulmonic Valve * Pulmonic valve is not well visualized. * No pulmonic stenosis. * Trace pulmonic regurgitation. Pulmonary Artery * Pulmonary artery not well visualized. Aorta * Normally sized aortic root. Pericardium * There is no pericardial effusion present. Interatrial Septum * No evidence of PFO by color Doppler. IVC * Normal IVC dimensions and inspiratory collapse. Consult Discharge Plan - Plan Referrals: Lety Hernandez CNP [Primary Care Provider] - 10/22/17 3:00 pm ()
--- NOTE | 2017-10-15 09:46 | Cardiology Progress Note ---
<Alfredo Bateman - Last Filed: 10/15/17 12:23> Date of Encounter: 10/15/17 Time of Encounter: 09:44 Assessment and Plan (1) Atrial fibrillation with rapid ventricular response Current Visit: Yes Status: Acute Heart rate ranging from the 110s to 130s on telemetry. Patient having shortness of breath associated with heart rate. Patient's blood pressures are labile at 100/74. Mildly elevated troponin at 0.05. I suspect this is due to demand ischemia and his heart rate has been very rapid. Echocardiogram reveals left ventricular ejection fraction that has worsened. It is currently now 20-25 %. Chest x-ray reveals mild pulmonary edema. Patient currently has pacer placed. There was previous discussion on whether to implant defibrillator and patient and son decided against it back in October. EKG reveals A. fib with RVR. Patient does not meet criteria for bi-venricular pacemaker as QRS complex is not wide enough. Continue amiodarone drip. .5 mg iv every minute. Start Digoxin .5mg IV followed by 0.125 qd Monitor heart rate as goal is <110 Monitor Blood Pressure as they have been labile Continue diuresis with 40 mg Lasix twice a day. Continue aspirin 81mg PO qd Anticoagulation- patient was on coumadin. Recheck PT/INR and if INR less than 2.0, start Pradaxa 150mg BID. (2) Dilated cardiomyopathy Current Visit: Yes Status: Acute Left ventricular ejection fraction is worsened to 20-25%. Patient currently does not have a defibrillator placed. Conversation with patient and family in the office was to not place defibrillator at that time. We will maximize medical therapy as stated above. (3) Anemia Current Visit: Yes Status: Acute Hb stable at 9.2. Was evaluated by gastroenterology. Qualifiers: Anemia type: unspecified type Qualified Code(s): D64.9 - Anemia, unspecified Discussion w patient/family: The assessment and plan as outlined above was discussed with the patient and/or family members who expressed understanding and agreement. All questions were answered. Thank you for involving us in the care of your patient. Please call with any questions. Subjective Principal diagnosis: a-fib with RVR, dilated cardiomyopathy Interval history: The patient still reports shortness of breath at rest. He denies any chest pain , pressure, tightness. Nurse states heart rate has been elevated in the 110s to 120s despite amiodarone loading dose and drip. Objective Vital Signs, Last 4 Hours Temp Pulse Resp BP Pulse Ox 10/15/17 08:00 121 111/74 10/15/17 07:21 98.1 F 112 20 100/74 95 10/15/17 07:00 95 102/87 10/15/17 06:15 104 104/91 10/15/17 05:45 119 97/76 General: Conversant Neck: No JVD Cardiac: No Murmur, Other (Telemetry atrial fibrillation with rate in the 100s to 130s.) Lungs: Normal Breath Sounds, No Wheeze, Rales, Rhonchi Neuro: Alert and responsive, No focal deficits noted Abdomen: Soft, Non-Tender Skin: No rashes noted on visualized skin Musculoskeletal: No Chest Wall Tenderness Extremities: No Edema Results 10/15/17 05:48 10/15/17 05:48 Lab Results 10/15/17 10/15/17 05:48 05:48 WBC 4.3 Hgb 9.2 L Hct 31.8 L Plt Count 178 Sodium 141 Potassium 3.8 Chloride 106 Carbon Dioxide 28 BUN 20 Creatinine 1.13 Glucose 105 Calcium 8.5 L Consult Discharge Plan - Plan Referrals: Lety Hernandez CNP [Primary Care Provider] - 10/22/17 3:00 pm () <Amari Sethi - Last Filed: 10/15/17 19:59> Date of Encounter: 10/15/17 Time of Encounter: 19:40 Assessment and Plan Discussion w patient/family: The assessment and plan as outlined above was discussed with the patient and/or family members who expressed understanding and agreement. All questions were answered. Thank you for involving us in the care of your patient. Please call with any questions. Objective Vital Signs, Last 4 Hours Temp Pulse Resp BP Pulse Ox 10/15/17 18:58 97.9 F 91 18 111/99 94 10/15/17 16:07 98.2 F 110 18 116/76 95 Results 10/15/17 05:48 10/15/17 05:48 Lab Results 10/15/17 10/15/17 10/15/17 05:48 05:48 12:33 WBC 4.3 Hgb 9.2 L Hct 31.8 L Plt Count 178 INR 1.6 Sodium 141 Potassium 3.8 Chloride 106 Carbon Dioxide 28 BUN 20 Creatinine 1.13 Glucose 105 Calcium 8.5 L - Attending Attestation I examined this patient and my medical decision-making was reviewed with the Resident Physician. I agree with the documented findings, disposition and treatment plan as described except to the extent set forth below. CC shortness of breath Pt reports shortness of breath has improved. He notes now able to lie flat to breath. PE: reviewed above, agree IMP: 1. A fib with RVR, not well controlled on IV aminodarone and po metoprolol, add dig, iv loading dose, po in AM. 2. Acute on chronic systolic heart failure, improved with IV diuresis 3. Anemia: appreciate evalutation by primary care team, oral anticoagulation for primary stroke risk reduction on hold
[2017-10-15] MEDS ORDERED: *HR* Digoxin 0.5 MG/2 ML AMPUL IVP ONE (10:15)
[2017-10-15] MEDS: Iron Sucrose Complex 200 MG in 0.9 % Sodium Chloride 100 ML IVPB SCH (10:32)
[2017-10-15 12:56] LABS: INR 1.6; Prothrombin Time 17.2 Seconds (9.4-12.1)
[2017-10-16] MEDS: Pantoprazole 40 MG VIAL IVP SCH (06:03)
[2017-10-16] MEDS: Metoprolol XL (24 HR) Succ 50 MG TAB.ER.24H PO SCH ×2 (07:31→21:19)
[2017-10-16] MEDS: Furosemide 40 MG/4 ML VIAL IVP SCH ×2 (07:31→16:58)
[2017-10-16] MEDS: Aspirin Enteric Coated 81 MG Tablet PO SCH (07:31)
[2017-10-16] MEDS: Amiodarone Premix 360 MG/200 ML BAG IVC SCH (08:44)
[2017-10-16] MEDS: Iron Sucrose Complex 200 MG in 0.9 % Sodium Chloride 100 ML IVPB SCH (08:46)
[2017-10-16] MEDS: *HR* Dabigatran 150 MG CAPSULE PO SCH ×2 (08:46→21:19)
[2017-10-16] MEDS ORDERED: *HR* Digoxin 0.5 MG/2 ML AMPUL IVP SCH (09:00)
--- NOTE | 2017-10-16 11:04 | Cardiology Progress Note ---
<Jigna Batemand - Last Filed: 10/16/17 14:42> Date of Encounter: 10/16/17 Time of Encounter: 10:58 Assessment and Plan (1) Atrial fibrillation with rapid ventricular response Status: Acute Heart rate has improved considerably. Telemetry is currently atrial fibrillation in the 80s. Patient is currently asymptomatic. Patient was on amiodarone drip and given IV digoxin loading dose and schedule dose this morning. Stop amiodarone drip. Start Amiodarone 400 mg PO BID for the next 2 weeks for appropriate loading dose. Digoxin tablet 0.125 daily Monitor heart rate Continue diuresis with 40 mg Lasix twice a day. Continue aspirin 81mg PO qd Anticoagulate with Pradaxa 150 mg twice a day (2) Dilated cardiomyopathy Status: Acute Left ventricular ejection fraction is worsened to 20-25%. Patient currently does not have a defibrillator placed. Conversation with patient and family in the office was to not place defibrillator at that time. (3) Anemia Status: Acute Appreciate work-up by hospitalist team and gastroenterology. Qualifiers: Anemia type: unspecified type Qualified Code(s): D64.9 - Anemia, unspecified Discussion w patient/family: The assessment and plan as outlined above was discussed with the patient and/or family members who expressed understanding and agreement. All questions were answered. Thank you for involving us in the care of your patient. Please call with any questions. Subjective Principal diagnosis: a-fib with RVR, dilated cardiomyopathy Interval history: Patient states that he is feeling a lot better and breathing is currently at baseline. Mother states that her heart rate has been in the 80s. Objective Vital Signs, Last 4 Hours Pulse BP 10/16/17 09:05 99 120/99 10/16/17 07:42 80 100/65 General: Conversant, No Apparent Distress HEENT: Atraumatic, Normocephaly, Mucus Membranes Moist Neck: No JVD Cardiac: Other (Telemetry: A. fib with a rate of 80s.) Lungs: Normal Breath Sounds, No Wheeze, Rales, Rhonchi Neuro: Alert and responsive, No focal deficits noted Abdomen: Soft, Non-Tender Skin: No rashes noted on visualized skin Musculoskeletal: No Chest Wall Tenderness Extremities: No Edema Results 10/15/17 05:48 10/15/17 05:48 Lab Results 10/15/17 12:33 INR 1.6 Consult Discharge Plan - Plan Instructions: Digoxin (By mouth), Amiodarone (By mouth), Dabigatran (By mouth) , Heart Failure (DC), Atrial Fibrillation (DC), Heart Healthy Diet (DC) Referrals: Amari Sethi DO [Partnered Physician] - (cardiology will call with appointment. ) Lety Hernandez, ERGONOMICS TECHNICIAN [Primary Care Provider] - 10/22/17 3:00 pm () Prescriptions: Bumetanide [Bumex] 1 mg PO Q12HR 30 Days #60 tablet Amiodarone [Cordarone] 400 mg PO BID 30 Days #60 tablet Dabigatran [Pradaxa] 150 mg PO BID 30 Days #60 capsule Digoxin [Lanoxin] 0.125 mg PO DAILY 30 Days #30 tablet Potassium Chloride 40 meq PO DAILY 30 Days #30 [email or web address] <Amrai Sethi - Last Filed: 10/18/17 19:37> Date of Encounter: 10/16/17 Time of Encounter: 22:00 Assessment and Plan Discussion w patient/family: The assessment and plan as outlined above was discussed with the patient and/or family members who expressed understanding and agreement. All questions were answered. Thank you for involving us in the care of your patient. Please call with any questions. Results 10/17/17 03:34 10/17/17 03:34 - Attending Attestation I examined this patient and my medical decision-making was reviewed with the Resident Physician. I agree with the documented findings, disposition and treatment plan as described except to the extent set forth below. CC: palpitations, shortness of breath Pt reports heart racing and skipping has resolved. He is less short of breath with activity and at rest. PE: reviewed, agree with above IMP: 1. Atrial fib with rapid ventricular response, now better controlled on aminodaroen and dig. Will switch to po meds and follow. Pt started on Pradaxa for primary stroke risk reduction for chronic a fib. Discussed bleeding risks, reversibility with [employer] if indicated, with pt and family. 2. Much better compensated acute on chronic systolic heart failure due to ischemic cardiomyopathy with EF 20%, continue supportive care, pt and family declines evalutation for AICD indicated by severe LV systolic impairment, Pt appears better compensated on Lasix 40 mg BID rather than q d, will plan on discharge with BID dosing.
[2017-10-16] MEDS ORDERED: *HR* Amiodarone 200 MG TABLET PO STA (11:07)
[2017-10-16] MEDS ORDERED: *HR* Amiodarone 200 MG TABLET PO SCH (11:15)
[2017-10-16] MEDS ORDERED: *HR* Amiodarone 200 MG TABLET PO ONE (11:22)
--- NOTE | 2017-10-16 16:39 | Internal Med Progress Note ---
Date of Encounter: 10/16/17 Time of Encounter: 16:36 - Subjective Interval history: Interval changes: 10/15/2017 Conversational dyspnea this am. Not rate controlled. Denies chest pain. 10/16/2017: Mild confusion but denies any cp. No longer having conversational dyspnea. No melena Physical Exam: See below. Assessment and Plan Atrial fibrillation with rapid ventricular response Current Visit: Yes Status: Acute Note rate or rhythm controlled. Rates 110 to 120 range. Patient having shortness of breath associated with heart rate. Mild troponin elevation 0.05 due to demand ischemia and his heart rate has been very rapid. Echocardiogram reveals left ventricular ejection fraction that has worsened. It is currently now 20-25%. Chest x-ray reveals mild pulmonary edema. Patient currently has pacer placed. There was previous discussion on whether to implant defibrillator and patient and son decided against it back in October. EKG reveals A. fib with RVR. Patient does not meet criteria for bi-venricular pacemaker as QRS complex is not wide enough. Cardiology consultes and recommend; Dig and Amiodarone started HR goal is <110 Continue diuresis with 40 mg Lasix twice a day. Continue aspirin 81mg PO qd H e was on coumadin. Recheck PT/INR and if INR less than 2.0, start Pradaxa 150mg BID. Dilated cardiomyopathy Left ventricular ejection fraction is worsened to 20-25%. Patient currently does not have a defibrillator placed. Anemia On admission, Hgb 8.7 and was 14.1 on 02/13/17. Hbg now sable at 9.2. He was scoped by gastroenterology on 10/13/17 and no source of bleeding was found. . The patient denies hematemesis, melena, or hematochezia and the FOBT was negative. Continue to follow Hgb. Recheck Hgb in am and if stable check with GI and cardiology if Okay to d/c to home. Possible colonoscopy if Hgb drops General appearance: Present: mild distress, A&O X 3, answers questions appropriately - Head Head exam: Present: atraumatic, normocephalic - Eye Eye exam: Present: PERRL, conjuntiva pink, sclera anicteric Pupils: Present: PERRL - Neck Neck exam general surgery: Present: supple, trachea midline. Absent: lymphadenopathy, thyromegaly - Respiratory Respiratory exam: Present: CTAB. Absent: accessory muscle use, rales, rhonchi, wheezes - Cardiovascular Cardiovascular exam: Present: irregular rhythm, +S1, +S2, tachycardia. Absent: bradycardia, diastolic murmur, gallop, RRR, rubs, systolic murmur - GI/Abdominal GI/Abdominal exam: Present: normal bowel sounds, soft, no peritoneal signs. Absent: distended, tenderness - Extremities Exam Extremities exam: Present: warm, radial pulses palpable and symmetrical. Absent : calf tenderness, cyanotic, pedal edema - Expanded Lower Extremities Exam Ankle exam: Present: swelling - Neurological Exam Neurological exam: Present: CN II-XII intact, oriented X3, no focal deficits. Absent: pronater drift, facial droop, speech deficit - Skin Skin exam: Present: dry, intact - Constitutional Vitals: Temp Pulse Resp BP Pulse Ox 98.7 F 64 15 106/57 94 10/16/17 15:43 10/16/17 15:43 10/16/17 15:43 10/16/17 15:43 10/16/17 15:43 General appearance: Present: mild distress, A&O X 3, answers questions appropriately Internal Medicine: Result - Labs CBC & Chem 7: 10/15/17 05:48 10/15/17 05:48 - ABG Interpretation ABG results: PT/INR, D-dimer PT 17.2 Seconds (9.4-12.1) H 10/15/17 12:33 Consult Discharge Plan - Plan Referrals: Lety Hernandez CNP [Primary Care Provider] - 10/22/17 3:00 pm ()
[2017-10-16] MEDS: *HR* Amiodarone 200 MG TABLET PO SCH (20:30)
[2017-10-17 03:57] LABS: Basophils % 1.2 %; Eosinophils # 0.1 K/mcL (0.0-0.6); Eosinophils % 2.2 %; Hematocrit 29.8 % (37.5-50.1); Hemoglobin 8.8 g/dL (12.9-16.9); Immature Granulocytes % 0.3 % (0-4); Lymphocytes # 0.7 K/mcL (0.6-4.6); Lymphocytes % 21.6 %; Mean Corpuscular HGB Conc 29.5 g/dL (31.6-35.5); Mean Corpuscular Hemoglobin 20.6 pg (28.0-33.3); Mean Corpuscular Volume 69.8 fL (83.0-100.0); Monocytes # 0.4 K/mcL (0.0-1.3); Monocytes % 11.1 %; Platelet Count 164 K/mcL (140-400); Red Blood Count 4.27 M/mcL (4.19-5.50); Red Cell Distribution Width 20.6 % (11.5-14.5); Segmented Neutrophils % 63.6 %
[2017-10-17 04:13] LABS: BUN/Creatinine Ratio 17 (6-26); Blood Urea Nitrogen 19 mg/dL (8-23); Calcium 8.3 mg/dL (8.6-10.3); Carbon Dioxide 28 mEq/L (23-29); Chloride 104 mEq/L (98-107); Glucose 92 mg/dL (70-105); Osmolality,Calculated 288 (280-300); Potassium 3.1 mEq/L (3.5-5.1); Sodium 138 mEq/L (136-145); eGFR For African Americans > 60 (> 60); eGFR For Non-African Americans > 60 (> 60)
[2017-10-17 04:24] LABS: Anisocytosis 2+ (Not Present); Burr Cells 1+ (Not Present); Hypochromasia Present (Not Present); Microcytosis Present (Not Present); Platelet Estimate Normal (Normal)
[2017-10-17] MEDS: Pantoprazole 40 MG VIAL IVP SCH (06:38)
[2017-10-17] MEDS: *HR* Dabigatran 150 MG CAPSULE PO SCH (08:10)
[2017-10-17] MEDS: Aspirin Enteric Coated 81 MG Tablet PO SCH (08:10)
[2017-10-17] MEDS: Metoprolol XL (24 HR) Succ 50 MG TAB.ER.24H PO SCH (08:11)
[2017-10-17] MEDS: Furosemide 40 MG/4 ML VIAL IVP SCH (08:11)
[2017-10-17] MEDS ORDERED: *HR* Digoxin 0.125 MG TABLET PO SCH (09:00)
[2017-10-17] MEDS ORDERED: *HR* Amiodarone 200 MG TABLET PO SCH ×2 (09:00)
--- NOTE | 2017-10-17 09:45 | Cardiology Progress Note ---
<Jigna Batemand - Last Filed: 10/17/17 09:40> Date of Encounter: 10/17/17 Time of Encounter: 09:40 Assessment and Plan (1) Atrial fibrillation with rapid ventricular response Status: Acute Telemetry is currently atrial fibrillation in the 80s. Patient is currently asymptomatic. Patient receiving any of 400 mg twice daily and digoxin 0.125 daily at this time. Amiodarone 400 mg PO BID for the next 10 days for appropriate loading dose. Then continue Amiodarone 400 mg once daily Digoxin tablet 0.125 daily Monitor heart rate Continue diuresis with 40 mg Lasix twice a day. Continue aspirin 81mg PO qd Anticoagulate with Pradaxa 150 mg twice a day Cardiology will sign off at this time and have patient follow-up on an as needed basis. Office follow-up in two weeks. (2) Dilated cardiomyopathy Status: Acute Left ventricular ejection fraction is worsened to 20-25%. Patient currently does not have a defibrillator placed. Conversation with patient and family in the office was to not place defibrillator at that time. (3) Anemia Status: Acute Appreciate work-up by hospitalist team and gastroenterology. Qualifiers: Anemia type: unspecified type Qualified Code(s): D64.9 - Anemia, unspecified Discussion w patient/family: The assessment and plan as outlined above was discussed with the patient and/or family members who expressed understanding and agreement. All questions were answered. Thank you for involving us in the care of your patient. Please call with any questions. Subjective Principal diagnosis: a-fib with RVR, dilated cardiomyopathy Interval history: Patient states that he is feeling a lot better and breathing is currently at baseline. Nurse states that his heart rate has been in the 80s. Patient denies any chest pain, pressure, tightness, shortness of breath, palpitations, lower extremities edema. Objective Vital Signs, Last 4 Hours Temp Pulse Resp BP Pulse Ox 10/17/17 07:01 98.2 F 93 18 115/68 96 General: Conversant, No Apparent Distress HEENT: Atraumatic, Normocephaly Neck: No JVD Cardiac: Other (Telemetry: Atrial fibrillation in the 80s) Results 10/17/17 03:34 10/17/17 03:34 Lab Results 10/17/17 10/17/17 03:34 03:34 WBC 3.2 L Hgb 8.8 L Hct 29.8 L Plt Count 164 Sodium 138 Potassium 3.1 L Chloride 104 Carbon Dioxide 28 BUN 19 Creatinine 1.12 Glucose 92 Calcium 8.3 L Consult Discharge Plan - Plan Instructions: Digoxin (By mouth), Amiodarone (By mouth), Dabigatran (By mouth) , Heart Failure (DC), Atrial Fibrillation (DC), Heart Healthy Diet (DC) Referrals: Amari Sethi DO [Partnered Physician] - (cardiology will call with appointment. ) Lety Hernandez CNP [Primary Care Provider] - 10/22/17 3:00 pm () Prescriptions: Bumetanide [Bumex] 1 mg PO Q12HR 30 Days #60 tablet Amiodarone [Cordarone] 400 mg PO BID 30 Days #60 tablet Dabigatran [Pradaxa] 150 mg PO BID 30 Days #60 capsule Digoxin [Lanoxin] 0.125 mg PO DAILY 30 Days #30 tablet Potassium Chloride 40 meq PO DAILY 30 Days #30 tab.[email or web address] <Amari Sethi - Last Filed: 10/18/17 19:44> Date of Encounter: 10/17/17 Time of Encounter: 16:00 Assessment and Plan Discussion w patient/family: The assessment and plan as outlined above was discussed with the patient and/or family members who expressed understanding and agreement. All questions were answered. Thank you for involving us in the care of your patient. Please call with any questions. Results 10/17/17 03:34 10/17/17 03:34 - Attending Attestation I examined this patient and my medical decision-making was reviewed with the Resident Physician. I agree with the documented findings, disposition and treatment plan as described except to the extent set forth below. CC: palpitations, shortness of breath Pt reports had mild shortness of breath and heart racing yesterday, occurred with increased activity, lasted several minutes, resolved with rest. Pt reports symptoms have resolved today, able to ambulate without difficulty. PE: reviewed, agree with above IMP; 1. Atrial fib with episodes of rapid ventricular response on oral amiodarone, will increase back to 400 mg bid x 2 weeks, then decrease to 200mg q d. 2. Acute on chronic systolic heart failure due to ischemic cardiomyopathy, improved with increased diuresis, continue. Anticipate discharge later today, pt is at low cardiovascular risk for discharge , will follow in office in two to three weeks to confirm change in oral amiodarone dose.
[2017-10-17] MEDS: Iron Sucrose Complex 200 MG in 0.9 % Sodium Chloride 100 ML IVPB SCH (09:54)
[2017-10-17] MEDS: *HR* Amiodarone 200 MG TABLET PO SCH (09:55)
[2017-10-17] MEDS ORDERED: *HR* Amiodarone 200 MG TABLET PO ONE (11:08)
[2017-10-17 11:10] VITALS: BP 93/53
--- NOTE | 2017-10-17 14:19 | Discharge Summary ---
Date of Encounter: 10/17/17 Time of Encounter: 14:10 - Discharge Medications Prescriptions: Bumetanide [Bumex] 1 mg PO Q12HR 30 Days #60 tablet Amiodarone [Cordarone] 400 mg PO BID 30 Days #60 tablet Dabigatran [Pradaxa] 150 mg PO BID 30 Days #60 capsule Digoxin [Lanoxin] 0.125 mg PO DAILY 30 Days #30 tablet Potassium Chloride 40 meq PO DAILY 30 Days #30 tab.er.prt Home Medications: Aspirin [Lo-Dose Aspirin EC] 81 mg PO DAILY 10/12/17 [History] Cilostazol [Pletal] 100 mg PO BID 10/12/17 [History] Levothyroxine [Synthroid] 100 mcg PO DAILY 10/12/17 [History] Metoprolol XL (24 HR) Succ [Toprol Xl] 50 mg PO BID 10/12/17 [History] Simvastatin [Zocor] 40 mg PO DAILY 10/12/17 [History] Warfarin [Coumadin] 4 mg PO [id number] 10/12/17 [History] Amiodarone [Cordarone] 400 mg PO BID 30 Days #60 tablet 10/17/17 [Rx] Bumetanide [Bumex] 1 mg PO Q12HR 30 Days #60 tablet 10/17/17 [Rx] Dabigatran [Pradaxa] 150 mg PO BID 30 Days #60 capsule 10/17/17 [Rx] Digoxin [Lanoxin] 0.125 mg PO DAILY 30 Days #30 tablet 10/17/17 [Rx] Potassium Chloride 40 meq PO DAILY 30 Days #30 tab.er.prt 10/17/17 [Rx] Allergies/Adverse Reactions: 3 Allergy/AdvReac Type Severity Reaction Status Date / Time No Known Allergies Allergy Unverified 10/31/15 10:38 Date of admission: 10/12/17 11:04 Primary care physician: Lety Hernandez CNP Consults: 10/12/17 11:28 Consult to Gastroenterology [CONS] Routine Consulting Provider: Gastroenterology Corie Reason for Consult: Anemia Time Notified: 11:28 Call Completed: No 10/14/17 12:25 Consult to Cardiology [CONS] Routine Comment: Consulting Provider: Cardiology Corie Reason for Consult: CHF/afib. EF 25% Call Completed: No 10/15/17 13:48 Consult to Physical Therapy [CONS] Routine Comment: Evaluate, develop and implement POC Reason for Consult: in bed, needs to ambulate Discharging clinician: Hiro Herrmann - Patient Status Disposition: Home, Self-Care Condition: Good - Discharge Instructions Instructions: Digoxin (By mouth), Amiodarone (By mouth), Dabigatran (By mouth) , Heart Failure (DC), Atrial Fibrillation (DC), Heart Healthy Diet (DC) Follow Up With: Amari Sethi DO [Partnered Physician] - (cardiology will call with appointment. ) Ltey Hernandez CNP [Primary Care Provider] - 10/22/17 3:00 pm () Forms: ED Satisfaction Letter Hospital course: The patient is an 87 year old man with a history of atrial fibrillation nonischemic cardiomyopathy CAD CHF. He has been experiencing increasing shortness of breath over the past 7-10 days he has had a poor appetite lower extremity edema and takes lasix at home. He's on Coumadin for stroke prophylaxis. He does not use or home oxygen or bronchodilators. No fevers chills chest pain or abdominal pain. He presented to the ER with the above complaints according to ER records lab work was obtained and did show hemoglobin of 8.7 which is down from previous level and his INR was elevated as was his troponin. He was found to be in AFib with Raoed Rentricula rate. He was seen by cardiology and started on an Amiodarone drip which was transitioned to PO Cardiology recommended Amiodarone 400 mg PO BID for the next 10 days for appropriate loading dose. Then continue Amiodarone 400 mg once daily along eith . Pradaxa was stated and hes to f/u with cardiology asan OP. Digoxin tablet 0.125 daily and aspirin 81 mg daily are to be continued, General appearance: Present: mild distress, A&O X 3, answers questions appropriately - Head Head exam: Present: atraumatic, normocephalic - Eye Eye exam: Present: PERRL, conjuntiva pink, sclera anicteric Pupils: Present: PERRL - Neck Neck exam general surgery: Present: supple, trachea midline. Absent: lymphadenopathy, thyromegaly - Respiratory Respiratory exam: Present: CTAB. Absent: accessory muscle use, rales, rhonchi, wheezes - Cardiovascular Cardiovascular exam: Present: irregular rhythm, +S1, +S2, tachycardia. Absent: bradycardia, diastolic murmur, gallop, RRR, rubs, systolic murmur - GI/Abdominal GI/Abdominal exam: Present: normal bowel sounds, soft, no peritoneal signs. Absent: distended, tenderness - Extremities Exam Extremities exam: Present: warm, radial pulses palpable and symmetrical. Absent : calf tenderness, cyanotic, pedal edema - Expanded Lower Extremities Exam Ankle exam: Present: swelling - Neurological Exam Neurological exam: Present: CN II-XII intact, oriented X3, no focal deficits. Absent: pronater drift, facial droop, speech deficit - Skin Skin exam: Present: dry, intact Time spent discussing smoking cessation with patient: more than 10 minutes - Time Spent with Patient Total time spent providing and/or coordinating discharge services: Greater than 30 minutes - Constitutional Vitals: Temp Pulse Resp BP Pulse Ox 97.6 F 103 18 93/53 96 10/17/17 11:06 10/17/17 11:06 10/17/17 11:06 10/17/17 11:06 10/17/17 14:01 General appearance: Present: mild distress, A&O X 3, answers questions appropriately
== END 2017-10-17 17:03 | disposition home or self-care (01) | DRG 308 ==
LOC: EMEROO 08:07 → 2SOUTHHOLD 08:07 → 2ANU 12:35 → 2NNU 10-14 17:18
PROVIDERS: ADMIT Hospitalist; ATTEND Internal Medicine
PROC: ENDOEBX (2017-10-13 14:00)